=== PATIENT | female | born 1980 ===

== ENCOUNTER → 2025-02-13 15:52 | Outpatient (ROUT) | payer SELFPAY ==
[2025-02-13 17:25] LABS: Influenza A - CEPHEID Flu A NEGATIVE (NEGATIVE); Influenza B - CEPHEID Flu B NEGATIVE (NEGATIVE)
[2025-02-13 17:38] LABS: COVID-19 CEPHEID 4-PLEX PCR Negative (Negative)
== END ==
PROVIDERS: Visit Provider Registered Nurse
DX: R05.1 Acute cough (principal)
CPT/HCPCS: 87637